=== PATIENT | female | born 2005 | race Caucasian/White ===

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

== ENCOUNTER 2024-07-02 11:12 | Emergency (ER) | payer OTHER, SELFPAY ==
--- NOTE | 2024-07-02 11:14 | ED.URI ---
HPI - URI/Sore Throat General Chief Complaint: Nausea/Vomiting/Diarrhea Stated Complaint: vomiting Time Seen by Provider: 07/02/24 11:14 Source: patient Mode of arrival: ambulatory Limitations: no limitations History of Present Illness HPI Narrative: Patient is a 18-year-old female who presents with 3 days of vomiting, chills. Does report feeling slightly better yesterday but worse today. Has not vomited today but does have nausea and abdominal pain. Reports abdomen is cramping. Also reports generalized body aches. Did take [id number] allergy medicine this morning. Denies any fever, congestion, sore throat, cough. Related Data Allergies Allergy/AdvReac Type Severity Reaction Status Date / Time No Known Allergies Allergy Mild Verified 07/02/24 11:33 Review of Systems Review of Systems: All systems reviewed & are unremarkable except as noted in HPI and below Constitutional: Constitutional: Denies chills, Denies fatigue, Denies fever(s), Denies headache(s), Denies malaise and Denies weakness Eyes: Eyes: Denies blurry vision, Denies itchy eyes and Denies loss of vision ENT: Denies otalgia, Denies headache(s), Denies nasal congestion, Denies sinus pain and Denies sore throat Cardiovascular: Cardiovascular: Denies chest pain, Denies irregular heart rhythm and Denies dyspnea Respiratory: Respiratory: Denies cough and Denies dyspnea Gastrointestinal: Gastrointestinal: Reports abdominal pain, Denies diarrhea, Reports nausea and Reports vomiting Musculoskeletal: Musculoskeletal: Denies back pain, Reports myalgias and Denies arthralgias Integumentary/Breasts: Skin/Breast: Denies pruritus and Denies rash Neurologic: Denies headache(s), Denies loss of vision and Denies weakness Psychiatric: Psychiatric: Reports no additional psychiatric complaints Endocrine: Endocrine: Denies fatigue Allergic/Immunologic: Allergic/Immunologic: Denies itchy eyes PMFSH Past Medical History Medical History Anxiety Allergic rhinitis No pertinent past medical history Surgical History Surgical History History of hip surgery left History of ear surgery X5 Social History Social History Smoking status: Current every day smoker Tobacco type: e-cigarettes/vaping Alcohol intake: current Substance use: current Substance use type: marijuana Lack of Transportation: No Lack of Food: Never True Current Housing: I Have Housing Concerned About Future Housing: No Difficulty Paying Gas/Electric Bills: No Difficulty Paying for Meds: No Currently Unemployed: No Education: High School Diploma/GED Difficulty w/ Childcare or Family Care: No Living arrangements: with family Occupation/Education: occupation Gender identity (if verbalized by the patient): Female Sexual Orientation (if Verbalized by the Patient): Straight or Heterosexual Comments At time of signature, agree with nursing past medical, surgical, social and family history. There is no relevant family history pertinent to the presenting complaint. Exam Const: General: cooperative, healthy appearing, comfortable, no acute distress and well nourished Nutritional Appearance: well nourished Orientation/consciousness: patient oriented x3 Limitations: no limitations HENMT: Head: normal to inspection, normocephalic and atraumatic Ears: hearing grossly normal bilaterally, external ears normal, TM's normal bilaterally, EAC's normal and no periauricular adenopathy Face/Nose/Sinus: Normal external nose present, Abnormal mucous membranes and turbinates present erythematous bilateral and diffuse, normal facial exam, sinuses nontender and face symmetric Face and sinus: normal facial exam, sinuses nontender and face symmetric Mouth: Yes Normal oral and palatal mucosa present, Yes lip normal, Yes tongue normal, Yes Normal salivary glands and ducts present, Yes oropharynx normal and Yes moist mucous membranes Teeth and gingiva: dentition normal Throat: posterior oropharynx normal, tonsils normal and uvula midline Eyes: General: appearance normal, both eyes and all related structures Alignment and Position: alignment normal and position normal Periorbital: periorbital findings normal Eyelids: eyelids normal Pupils: Equal, round and reactive pupils present Neck: Neck: normal visual inspection, full ROM, no lymphadenopathy and supple Chest: Chest palpation & inspection: normal inspection of the chest and normal palpation of entire chest wall Resp: Effort & Inspection: normal respiratory effort and able to speak in complete sentences Auscultation: clear to auscultation bilaterally, no crackles, no rales, no rhonchi and no wheezes Cardio: Rate: regular rate Rhythm: regular rhythm Heart sounds: S1 normal heart sound present and S2 normal heart sound present GI: Inspection: normal to inspection GI Palp: Yes abdominal tenderness, Yes Soft to palpation, Yes Tenderness to palpation present (GI) (epigastric) and No Guarding due to palpation present (GI) Auscultation: normal bowel sounds Rectal Exam: deferred Skin: General skin exam: normal color and no rashes or lesions noted Neuro: General: patient oriented x3 and moves all extremities Cranial nerves: Yes Equal, round and reactive pupils present Speech: normal speech Gait exam (Neuro): Normal gait present Extrem: General: normal to inspection, full ROM and no edema Psych: Appearance: grossly normal and well kempt Mental Status: mental status grossly normal Speech and movement: Normal speech and movement present Affect: normal affect Attitude: cooperative Thought process: Normal thought process present Course Course Emergency Course: Discharge instructions reviewed with patient, as well as provided in writing per nursing staff. The instructions also include specific and strict return/GO TO THE ER as well as f/u information. All questions have been answered, and the patient deny any further questions with discharge and discharge plan. Portions of this record may have been created with voice recognition software Level of Care: Express Care Visit Vital Signs Vital signs: Vital Signs Temperature 36.6 C 07/02/24 11:24 Pulse Rate 60 07/02/24 11:24 Respiratory Rate 18 07/02/24 11:24 Blood Pressure 133/82 07/02/24 11:24 Pulse Oximetry 100 07/02/24 11:24 Oxygen Delivery Room Air 07/02/24 11:24 Temperature 36.6 C 07/02/24 11:24 Pulse Rate 60 07/02/24 11:24 Respiratory Rate 18 07/02/24 11:24 Blood Pressure 133/82 07/02/24 11:24 Pulse Oximetry 100 07/02/24 11:24 Oxygen Delivery Room Air 07/02/24 11:24 Reviewed MDM - URI/Sore Throat MDM Narrative Medical decision making narrative: Pt well hydrated appearing, in no respiratory distress, hemodynamically stable. Recommend supportive care. The patient is stable at time of discharge the clinical impression was discussed and the patient was given the opportunity to ask questions, which were addressed as completely as possible given the information available at present. Anticipatory guidance and return to care precautions were discussed and the importance of primary care follow-up was stressed and encouraged. The patient voiced understanding of the plan, indications to return, and the need for follow-up. Differential diagnosis considered: Gastroenteritis, Blanco virus, viral syndrome, and influenza.? Exam findings show no acute concerns or changes; patient is non-toxic appearing and is in no distress.? Patient is appropriate for outpatient treatment and follow-up.? Medical Records Attestation: I reviewed the patient's medical records. Lab Data Attestation: I reviewed the patient's lab results. Labs: Lab Results 07/02/24 Range/Units 12:13 POC Influenza A Ag Negative (Negative) POC Influenza B Ag Negative (Negative) POC SARS CoV-2 Ag Negative (Negative) Discharge Plan Discharge Clinical Impression: Gastroenteritis Patient Disposition: Home, Self-Care Condition: Stable Instructions: Gastroenteritis (ED) Additional Instructions: Stay hydrated. Take small sips of fluid containing electrolytes frequently(Body [place], Gatorade, Powerade, liquid IV). Eat small meals that her very bland including bananas, applesauce, rice, toast, boiled or grilled chicken, soup. Do not eat anything fried, spicy or overly acidic. You should go to the hospital if you experience return of persistent nausea and vomiting that does not resolve and does not allow you to tolerate any food or fluids, persistent fevers for greater than 2-3 more days, increasing abdominal pain that persists despite medications, persistent diarrhea, dizziness, syncope (fainting), or for any other concerns. Patient Language: [place] Prescriptions: New dicyclomine 20 mg tablet 20 mg PO QID 7 Days Qty: 28 0RF ondansetron 4 mg tablet,disintegrating 4 mg PO Q6-8H PRN (Reason: nausea and vomiting) Qty: 7 0RF Follow-up/Referrals: Norman Pratt MD [Physician] - 3 Days Stand Alone Forms: Work/School Release IP Time of Disposition: 12:11
[2024-07-02 11:24] VITALS: BP 133/82; PULSE 60; RESP 18; TEMP 36.6; O2SAT 100
[2024-07-02 12:15] LABS: EDCOVIDSCREEN Negative (Negative); EDINFLUASCREEN Negative (Negative); EDINFLUBSCREEN Negative (Negative)
--- OUTSIDE RECORDS SUMMARY | 2024-07-02 13:19 | XMS_ITS | Patient Health Record ---
Author Organization [facility] Address [address] [place] [address] Care Team Providers Care Chute Puller Name Role Phone Re Patel Primary Care Provider [phone] Allergies No Known Allergies Reason For Referral No Information Medications Medication SIG (Take, Route, Fr equency, Duration) Notes Start Date End Date Status LaMICtal 25 MG 1 tablet Orally Once a day for 30 day(s) Active Sertraline HCl 25 MG 1 tablet Orally Onc e a day for 30 day(s) Active Problems Problem Type SNOMED Code ICD Code Onset Dates Problem Status W/U Status Risk Notes Problem Anxiety disorder (593608111) Anxiety disorder, unspecified (F41.9) Active confirmed Problem Mood disorder (59982207) Mood disorder (F39) Active confirmed Plan Of Treatment No Information Insurance Providers Payer Name Payer Address Payer Phone Subscriber Number Group Number Insured Name Patient Relationship to Insured Coverage Start Date Coverage End Date [facility] [address] [place] [address] [phone] [id number] Aggie Limon Self - patient is the insured 2 Medical (General) History Medical History History ICD Code denies seizures/denies asthma Surgical History Surgery Date(Month/Year) 5 surgeries on left ear, unable to hear out of the left ear screws in left hip/femur
--- OUTSIDE RECORDS SUMMARY | 2024-07-02 13:19 | XMS_ITS | Clinical Summary ---
Author Organization [facility] Address [address] [place] [address] Care Team Providers Care Database Designer Name Role Phone Nadya Araujo MD Unavailable [phone] Nadya Araujo MD Primary Care Provider [phone] Source Comments [facility],non-owned Affiliates and Associated Physician Practices is amultiple site organization consisting of ambulatory clinics and hospital sitesin [place], [place], [place] and [place]. This disclosure is being madepursuant to the Care Everywhere program and may not contain all information available regarding this patient. Last updated 17.[facility] Allergies No known active allergies Medications Be aware that medications may not be up to date on this document. Always verify current medications with the patient. 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 (A FLURIA, FLUZONE QUADRIVALENT; 6MO+) (IIV4) 02/14/2017,04/06/2016 MENINGOCOCCAL CONJUGATE (MCV4P) 09/20/2020,09/10 MMR 11/19/2008,08/30/2005 PNEUMOCOCCAL CONJ, PEDS 08/30/2005,02/17,2004,10/14 POLIO IPV 02/17/2005,2004,2004 PPD 08/30/2005 TDAP (7yrs+) 09/11/2015 VARICELLA 11/24/2007,11/30/2005 Social History Tobacco Use Types Packs/Day Years Used Date Smoking Tobacco: Never Assessed PHQ-2 Answer Date Recorded PHQ2 TOTAL SCORE 0 09/20/2020 Sex and Gender Information Value Date Recorded Sex Assigned at Not on file Gender Identity Not on file Sexual Orientation Not on file Last Filed Vital Signs Vital Sign Reading Time Taken Comments Blood Pressure 112/68 09/20/2020 9:57 AM CDT Pulse 52 09/20/2020 9:57 AM CDT Temperature 36.5 C (97.7 F) 09/20/2020 9:57 AM CDT Respiratory Rate - - Oxygen Saturation - - Inhaled Oxygen Concentration - - Weight 101.2 kg (223 lb) 09/20/2020 9:57 AM CDT Height 170.2 cm (5' 7 ) 09/20/2020 9:57 AM CDT Body Mass Index 34.93 09/20/2020 9:57 AM CDT Body Mass Index Percentile 98.20% 09/20/2020 9:5 7 AM CDT Growth Chart: [facility] (Girls, 2- 20 Years) Plan of Treatment Health Maintenance Due Date Last Done Comments HIV SCREENING 08/13/2019 CHLAMYDIA/GONORRHEA SCREENING 2020 MENINGOCOCCAL (Group B) VACC INE SHARED DECISION-MAKING (1 of 2 - Standard) 2020 HEPATITIS C SCREENING 08/08/2022 COVID-19 VACCINE (2 - 2023-2 5 season) 2023 10/29/2020 INFLUENZA VACCINE (#1) 2023 7, 04/06/2016, 03/24/2007, Additional history exists DEPRESSION SCREENING 04/11/2024 DTAP/TDAP/TD VACCINES (7 - T d or Tdap) 09/10/2025 09/11/2015, 08/01/2009, 02/14/2006, Additional history exists ZOSTER VACCINE (1 of 2) 2054 HEPATITIS B VACCINE Completed 02/17/2005, 2004, 2004, Additional history exists PNEUMOCOCCAL VACCINE Completed 08/30/2005, 02/17/2005, 2004, Additional history exists HIB VACCINE Completed 11/30/2005, 12/2004, 2004, Additional history exists HPV VACCINE Completed 09/20/2020, 10/28/2018 MENINGOCOCCAL GROUPS A/C/Y/W VACCINE Completed 09/20/2020, 09/11/2015 Goals Goal Patient Goal Type Associated Problems Recent Progress Patient-Stated? Author Exercise 3X per week (30 min per time) Exercise On track( 017 2:14 PM LEAD SPRINKLER) Sheila Booker RN Note: Caring for Your Overweight Child Get Moving: It is recommended that children and teens get physical activity for at least 1 hour per day on most (or better yet, all) days of the week. That may sound like a lot, especially if your child is not getting any physical activity now. But physical activity means more than exercise. It can mean playing games in the backyard, or washing the car. It can mean picking up leaves, or walking the dog. Add the healthy habit of physical activity to your family s schedule. When children take off weight through dieting alone, 80 percent of the loss is from fatty tissue and 20 percent is from muscle. Adding weight-resistance training to an exercise routine preserves the muscle tissue. Virtually every ounce dropped comes from fat. Once an adolescent meets her goal, regular exercise is essential for maintaining the desired weight. Where can I go for more information? [place] [employer] ( ) www.aap.org HealthyChildren.org www.healthychildren.org U.S. Department of Health and Human Services www.hhs.gov Website and free downloadable brittani for smartphones: http://www.[employer]/ Use safety retraint in car Lifestyle On track( 017 2:14 PM LEAD SPRINKLER) Sheila Booker RN Care Teams Database Designer Relationship Specialty Start Date End Date Nadya Araujo MD PCP - Pediatrics 01/21/09 Nadya Araujo MD PCP - General Pediatrics 07/02/14
== END 2024-07-02 12:16 | disposition home or self-care (01) ==
PROVIDERS: Emergency Provider Nurse Practitioner Family
DX: K52.9 Noninfective gastroenteritis and colitis, unspecified (principal); Z20.822 Contact with and (suspected) exposure to COVID-19; F17.290 Nicotine dependence, other tobacco product, uncomplicated; F12.90 Cannabis use, unspecified, uncomplicated
CPT/HCPCS: 87426; 87804; 99213; G0463

== ENCOUNTER 2024-07-09 17:40 | Emergency (ER) | payer OTHER, SELFPAY ==
--- NOTE | ~2024-07-09 | CT_ITS ---
History: 11 day history of headache PROCEDURE: CT head without contrast. COMPARISON: None TECHNIQUE: Axial imaging of the head performed from the skull base to the vertex without IV contrast. Sagittal a nd coronal reformations obtained. DLP: 605 mGy-cm FINDINGS: The ventricles are normal in size, shape and position. There is no mass, mass effect or midline shift. There is no abnormal extra-axial fluid collection or intracranial hemorrhage. Visualized paranasal sinuses are clear. The right-sided mastoid air cells are well aerated. Absence of the left mastoid air cells, likely con genital. No acute displaced fractures within the overlying cranium. Impression: No acute intracranial hemorrhage or suspicious mass effect. Reviewed, dictated and finalized at location A. Impression: No acute intracranial hemorrhage or suspicious mass effect.
--- OUTSIDE RECORDS SUMMARY | 2024-07-09 17:52 | XMS_ITS | Patient Health Record ---
Author Organization [facility] Address [address] [place] [address] Care Team Providers Care Junior Account Manager Name Role Phone Re Patel Primary Care Provider Allergies No Known Allergies Reason For Referral [...] W/U Status Risk Notes Problem Anxiety disorder ([id number]) Anxiety disorder, unspecified (F41.9) Active confirmed Problem Mood disorder (38819228) Mood disorder (F39) Active confirmed Plan Of Treatment No Information Insurance Providers Payer Name Payer Address Payer Phone Subscriber Number Group Number Insured Name Patient Relationship to Insured Coverage Start Date Coverage End Date [facility] [address] [place] [address] [id number] Aggie Limon Self - patient is the insured 2 Medical (General) History Medical History History ICD Code denies seizures/denies asthma Surgical History Surgery Date(Month/Year) 5 surgeries on left ear, unable to hear out of the left ear screws in left hip/femur
--- OUTSIDE RECORDS SUMMARY | 2024-07-09 17:52 | XMS_ITS | Clinical Summary ---
Author Organization [facility] Address [address] [place] [address] Care Team Providers Care Python Engineer Name Role Phone Nadya Araujo MD Unavailable [phone] Nadya Araujo MD Primary Care Provider [phone] Source Comments [facility],non-owned Affiliates and Associated Physician Practices is amultiple site organization consisting of ambulatory clinics and hospital sitesin [place], [place], [place] and [place]. This disclosure is being madepursuant to the Care Everywhere program and may not contain all information available regarding this patient. Last updated 17.[facility] Allergies No known active allergies Medications Be [...] 09/20/2020 9:5 7 AM CDT Growth Chart: [facility] (Girls, 2- 20 Years) Plan of Treatment [...] time) Exercise On track( 017 2:14 PM ASSOCIATE SALES REPRESENTATIVE) Sheila Booker RN Note: Caring for Your [...] Where can I go for more information? [place] [employer] ( ) www.aap.org HealthyChildren.org www.healthychildren.org U.S. Department of Health and Human Services www.hhs.gov Website and free downloadable brittani for smartphones: http://www.[employer]/ Use safety retraint in car Lifestyle On track( 017 2:14 PM ASSOCIATE SALES REPRESENTATIVE) Sheila Booker RN Care Teams Python Engineer Relationship Specialty Start Date End Date Nadya Araujo MD PCP - Pediatrics 01/21/09 Nadya Araujo MD PCP - General Pediatrics 07/02/14
--- NOTE | 2024-07-09 18:01 | ED.HA ---
HPI - Headache General Chief Complaint: Recheck/Abnormal Lab/Rx Stated Complaint: 12 days N/V, feeling better today, need work note Time Seen by Provider: 07/09/24 17:55 Focused HPI: Patient is a 18-year-old female who presents to the ER with complaints of 12 day history of flu-like symptoms. She endorses abdominal pain, vomiting and nausea. She reports on July 02, 2024 she went to urgent care where they told her she had some type of bacterial infection in her abdomen. Patient reports she went to a different facility yesterday and they told her she had gastritis. She reports they didn't do any testing besides a blood draw. Patient endorses marijuana use, but is adamant that her symptoms are unrelated to her usage. She reports she is feeling better today, except this morning she had watery emesis. Pt reports when her abdomen starts hurting it starts to feel like an alien is coming out. She denies any fevers, sore throat, constipation. Pt is requesting a doctor's note to return to work tomorrow. GENERAL: Well-appearing, well-nourished, and in no acute distress. HEAD: Normocephalic, atraumatic. CHEST: Clear to auscultation. ?No respiratory distress. HEART: Regular rate and rhythm.? NEURO: ?Alert and oriented x3. Patient screened in triage and initial orders placed.? ?Additional care and disposition to be based upon?diagnostic testing and treatment. Related Data Allergies Allergy/AdvReac Type Severity Reaction Status Date / Time No Known Allergies Allergy Mild Verified 07/09/24 17:44 Review of Systems Review of Systems: All systems reviewed & are unremarkable except as noted in HPI and below PMFSH Past Medical History Medical History Anxiety Allergic rhinitis No pertinent past medical history Surgical History Surgical History History of hip surgery left History of ear surgery X5 Social History Social History Smoking status: Current every day smoker Tobacco type: e-cigarettes/vaping Alcohol intake: current Substance use: current Substance use type: marijuana Lack of Transportation: No Lack of Food: Never True Current Housing: I Have Housing Concerned About Future Housing: No Difficulty Paying Gas/Electric Bills: No Difficulty Paying for Meds: No Currently Unemployed: No Education: High School Diploma/GED Difficulty w/ Childcare or Family Care: No Living arrangements: with family Occupation/Education: occupation Gender identity (if verbalized by the patient): Female Sexual Orientation (if Verbalized by the Patient): Straight or Heterosexual Exam Narrative: GENERAL: Well appearing, well-nourished, non-toxic, in no acute distress. HEAD: Normocephalic, atraumatic. NECK: Supple. No adenopathy, no masses. RESPIRATORY: Airway patent, respirations nonlabored. Clear to auscultation bilaterally, no rales, rhonchi, wheezing. CARDIOVASCULAR: Regular rate and rhythm without murmurs, rubs, or gallops. Peripheral pulses 2+ and equal bilaterally. ABDOMINAL: Soft, nontender, nondistended, no hepatosplenomegaly. Normoactive BS. MUSCULOSKELETAL: Moves all extremities. Strength/ROM intact without gross deformities. SKIN: Warm, dry, normal color. No rashes. NEURO: A&O X3. Speech clear. Cranial nerves II-XII intact. No ataxic movements. PSYCHIATRIC: Appropriate mood and affect. Normal interaction. Course Vital Signs Vital signs: Vital Signs Temperature 36.4 C 07/09/24 18:15 Pulse Rate 61 07/09/24 18:15 Respiratory Rate 16 07/09/24 18:15 Blood Pressure 131/74 07/09/24 18:15 Pulse Oximetry 100 07/09/24 18:15 Temperature 37.1 C 07/09/24 19:23 Pulse Rate 67 07/09/24 19:23 Respiratory Rate 16 07/09/24 19:23 Blood Pressure 129/79 07/09/24 19:23 Pulse Oximetry 100 07/09/24 19:23 MDM - Headache MDM Narrative Medical decision making narrative: Patient is a 18-year-old female who presents to the ER with complaints of 12 day history of flu-like symptoms. She endorses abdominal pain, vomiting and nausea. She reports on July 02, 2024 she went to urgent care where they told her she had some type of bacterial infection in her abdomen. Patient reports she went to a different facility yesterday and they told her she had gastritis. She reports they didn't do any testing besides a blood draw. Patient endorses marijuana use, but is adamant that her symptoms are unrelated to her usage. She reports she is feeling better today, except this morning she had watery emesis. She reports when her abdomen starts hurting it starts to feel like an alien is coming out. Patient denies any fevers, sore throat, constipation. She is requesting a doctor's note to return to work tomorrow. Labs Ordered: UA, UDS (pt had a COVID/RSV/flu swab performed at [facility] yesterday and it was negative) Imaging Ordered: Pt offered an abdominal/pelvis CT scan and refused. *CT brain scan was ordered on the wrong pt. FIELD SOFTWARE ENGINEER attempted to cancel the order approximately ten minutes later, but CT scan had already been performed* Medications Ordered: Patient declined, she was offered Zofran and and/or Bentyl here in the ER Results: Pt's urinalysis indicates pt has a UTI. Diagnosis: Gastroenteritis, cannabinoid hyperemesis Patient Education/Shared MDM: Results of urinalysis shared with patient. She denies any acute pain at the time of examination. Patient strongly advised to maintain hydration status upon discharge and follow-up with her PCP as soon as possible. FIELD SOFTWARE ENGINEER provided extensive education to patient regarding cannabinoid hyperemesis. She will be discharged home with a prescription for Bentyl, Reglan, Macrobid and capsaicin ointment. Strict return precautions provided. Patient verbalized understanding and is in agreement with plan. Vital signs stable at time of discharge. All questions answered. Differential Diagnosis Differential diagnosis: Likely other (Cannabinoid hyperemesis, dehydration, marijuana abuse, urinary tract infection) Lab Data Attestation: I reviewed the patient's lab results. Labs: Lab Results 07/09/24 07/09/24 Range/Units 18:57 19:00 Urine Color Red H (Yellow) Urine Appearance Turbid H (Clear) Urine pH 5.5 (5.0-9.0) Ur Specific [place] 1.029 (1.001-1.035) Urine Protein 2+ H (Negative) mg/dL Urine Glucose (UA) Negative (Negative) mg/dL Urine Ketones Trace H (Negative) mg/dL Ur Blood (Man) 3+ H (Negative) Urine Nitrate Negative (Negative) Urine Bilirubin 2+ H (Negative) Urine Urobilinogen 1.0 (<2.0) mg/dL Leukocyte Esterase Rfl 1+ H (Negative) RUEL/UL Urine RBC >100 H (0-2) /hpf Urine WBC 21-50 H (0-3) /hpf Ur Squamous Epith Cells Moderate (Few) /hpf Urine Bacteria 3+ H /hpf Urine Casts 0-2 POC Urine HCG, Qual Negative (Negative) Urine Opiates Screen Negative (Negative) Urine Methadone Screen Negative (Negative) Ur Barbiturates Screen Negative (Negative) Ur Phencyclidine Scrn Negative (Negative) Ur Amphetamine Screen Negative (Negative) U Benzodiazepines Scrn Negative (Negative) Urine Cocaine Screen Negative (Negative) U Cannabinoids Screen Positive A (Negative) Imaging Data Attestation: I personally reviewed and interpreted this imaging study as follows: Radiologist's impression: Impressions Head CT 07/09/24 18:29 Impression: No acute intracranial hemorrhage or suspicious mass effect. Discharge Plan Discharge Clinical Impression: Gastritis, Cannabinoid hyperemesis syndrome, Urinary tract infection, Cyclical vomiting syndrome not associated with migraine Patient Disposition: Home, Self-Care Condition: Stable Instructions: Antibiotic Form Additional Instructions: Please return to the ER with any worsening symptoms. Follow-up with primary care provider as soon as possible. Take all medications as prescribed. Remember to stay hydrated upon discharge. Complete your full dose of antibiotics. Patient Language: Khmer Prescriptions: New metoclopramide HCl [Reglan] 10 mg tablet 10 mg PO Q6H PRN (Reason: nausea and vomiting) Qty: 14 0RF dicyclomine 10 mg capsule 10 mg PO TID Qty: 15 0RF capsaicin 0.1 % cream 1 applic topical TID Qty: 56.6 0RF Rx Instructions: do not wash area for at least 30 min after application nitrofurantoin monohyd/m-cryst [Macrobid] 100 mg capsule 100 mg PO Q12H 5 Days Qty: 10 0RF Rx Instructions: must administer with a meal/food No Action dicyclomine 20 mg tablet 20 mg PO QID 7 Days Qty: 28 0RF ondansetron 4 mg tablet,disintegrating 4 mg PO Q6-8H PRN (Reason: nausea and vomiting) Qty: 7 0RF Follow-up/Referrals: UNKNOWN,DOCTOR [Non-Staff] - Stand Alone Forms: Work/School Release IP Time of Disposition: 19:43
[2024-07-09 18:15] VITALS: BP 131/74; PULSE 61; RESP 16; TEMP 36.4; O2SAT 100
[2024-07-09 19:05] LABS: BEDSIDEPREGUCG Negative (Negative)
--- OUTSIDE RECORDS SUMMARY | 2024-07-09 19:11 | XMS_ITS | Clinical Summary ---
Author Organization [facility] Address [address] [place] [address] Care Team Providers Care Bleach Packer Name Role Phone Nadya Araujo MD Unavailable [phone] Nadya Araujo MD Primary Care Provider [phone] Source Comments [facility],non-owned Affiliates and Associated Physician Practices is amultiple site organization consisting of ambulatory clinics and hospital sitesin [place], [place], [place] and [place]. This disclosure is being madepursuant to the Care Everywhere program and may not contain all information available regarding this patient. Last updated 17.[facility] Allergies No known active allergies Medications Be [...] 09/20/2020 9:5 7 AM CDT Growth Chart: [facility] [place] (Girls, 2- 20 Years) Plan of Treatment [...] time) Exercise On track( 017 2:14 PM FIGURE SKATER) Sheila Booker RN Note: Caring for Your [...] Where can I go for more information? [employer] ( ) www.aap.org HealthyChildren.org www.healthychildren.org U.S[place] Department of Health and Human Services www.hhs.gov Website and free downloadable brittani for smartphones: http://www.Larky/ Use safety retraint in car Lifestyle On track( 017 2:14 PM FIGURE SKATER) Sheila Booker RN Care Teams Bleach Packer Relationship Specialty Start Date End Date Nadya Araujo MD PCP - Pediatrics 01/21/09 Nadya Araujo MD PCP - General Pediatrics 07/02/14
[2024-07-09 19:23] VITALS: BP 129/79; PULSE 67; RESP 16; TEMP 37.1; O2SAT 100
[2024-07-09 19:34] LABS: Add Urine Microscopic? YES; Appearance Urine Turbid (Clear); Bacteria Urine 3+ /hpf; Bilirubin Urine 2+ (Negative); Blood Urine 3+ (Negative); Color Urine Red (Yellow); Glucose Urine UA Negative (Negative); Ketones Urine Trace mg/dL (Negative); Leukocyte Esterase Ur 1+ LEU/UL (Negative); Nitrate Urine Negative (Negative); Non Pathogenic Casts 0-2; Protein Urine 2+ mg/dL (Negative); RBC Urine >100 /hpf (0-2); Specific Grav Ur 1.029 (1.001-1.035); Squamous Epithelial Cell Urine Moderate /hpf (Few); WBC Urine 21-50 /hpf (0-3); pH Urine 5.5 (5.0-9.0)
[2024-07-09 19:48] LABS: Amphetamine Screen Urine Negative (Negative); Barbiturate Screen Urine Negative (Negative); Benzodiazepines Screen Urine Negative (Negative); Cannabinoid Screen Urine Positive (Negative); Cocaine Screen Urine Negative (Negative); Methadone Screen Urine Negative (Negative); Opiate Screen Urine Negative (Negative); Phencyclidine Screen Urine Negative (Negative)
[2024-07-09 19:50] VITALS: BP 125/80; PULSE 65; RESP 16; O2SAT 97
[2024-07-09] MEDS: NITROFURANTOIN MONOHYD MACROCR 100 MG CAP PO (19:51)
== END 2024-07-09 19:56 | disposition home or self-care (01) ==
LOC: ANHED 19:09
PROVIDERS: Emergency Provider Registered Nurse
DX: R11.2 Nausea with vomiting, unspecified (principal); F12.90 Cannabis use, unspecified, uncomplicated; N39.0 Urinary tract infection, site not specified; R11.15 Cyclical vomiting syndrome unrelated to migraine; K29.70 Gastritis, unspecified, without bleeding; F17.210 Nicotine dependence, cigarettes, uncomplicated; Z79.899 Other long term (current) drug therapy
CPT/HCPCS: 70450; 80307; 81001; 81025; 99284; A9270